=== PATIENT | male | born 1940 | race Caucasian/White ===

== ENCOUNTER → 2017-05-15 | Day surgery (SDC) | payer MEDICARE, OTHER ==
[2017-05-15] VITALS (7 sets, daily range): BP systolic 120–156; BP diastolic 60–86; PULSE 52–60; RESP 16–20; O2SAT 92–96
[~2017-05-15] VITALS: Ht 177.8 cm; Wt 116.7 kg
[~2017-05-15] MED LIST: ASPI-973 PO; ATRV10T PO; Acetaminophen IV 1,000 mg IV ONE; CALCIT PO; CHOL200025 PO; CeFAZolin Inj 2 gm / 50mL D5W IV ONE; Dexamethasone 4 mg/mL Inj IVPUSH PRN; EPHEDrine Sulfate 50 mg/mL Inj IVPUSH PRN; HYDROmorphone 1 mg/mL Inj IVPUSH PRN; IBUP100T47 PO; Lactated Ringer's 1,000 ML IV ONE; Lactated Ringer's 1,000 ML IV SCH; Lactated Ringer's 500 ML IV PRN; MetoCLOpramide 5 mg/mL 2 mL Inj IVPUSH PRN; Ondansetron 2 mg/mL 2 mL Inj IVPUSH PRN; Phenylephrine 10,000 mCg/mL Inj IVPUSH PRN; Phenylephrine/NS 100 mCg/mL 10 mL Syringe IVPUSH ONE; Propofol 10,000 mCg/mL 20 mL Inj ONE; RANI75TA21 PO; fentaNYL-PF 50 mCg/mL 2 mL Inj IVPUSH PRN; fentaNYL-PF 50 mCg/mL 2 mL Inj ONE
[2017-05-15] MEDS: CeFAZolin 2 Gm/50 mL D5W IV Premix IV ONE ×2 (11:26→11:35)
--- NOTE | 2017-05-15 12:41 | PCM.HPANE ---
Patient Data Date of Service: May 15, 2017 Surgeon Admitting Provider: Attending Provider:Lidia Knight MD Primary Care Physician:Audi Graves MD Other Provider:Bibiana Waller Anesthesia Reason for Visit Bladder Neck Contracture Ht/WT & BMI Height (Feet): 5 Height (Inches): 10 Weight (Kilograms): 116.7 Body Mass Index 36.00 Allergies Coded Allergies: No Known Allergies (Verified Allergy, Severe, 05/10/17) Past Anesthesia History Anesthesia History: Denies:: Abnormal Airway, Anesthesia Reactions, Difficult Intubation, Fam Anesthesia Reaction, Fam Malignant Hypertherm, Malignant Hyperthermia Diabetes History Hx Diabetes?: No MRSA MRSA: No Medications Blood Thinner: Aspirin Hypertension Medication: No Home Meds Incl Beta Deondre: No Reported Medications Ranitidine (Zantac OTC)75 Mg Geqldy32 Mg PO DAILY PRN reflux #1 PKG Ref 0 05/10/17 Cholecalciferol (Vitamin D3) (Vitamin D3)2,000 Unit Tablet2,000 Unit PO DAILY 05/10/17 Calcium Citrate 250 Mg [id number] Mg PO DAILY 05/10/17 Atorvastatin (Lipitor)10 Mg Tab5 Mg PO DAILY Ref 0 05/10/17 Ibuprofen (Advil)100 Mg Gnemtz355 Mg PO PRN For Pain 05/10/17 Aspirin 81 Mg Lavkep89 Mg PO DAILY Ref 0 05/10/17 Discontinued Reported Medications Atorvastatin (Lipitor)10 Mg Tab10 Mg PO DAILY Ref 0 03/16/16 Ranitidine (Zantac OTC)75 Mg Dewrgk59 Mg PO DAILY #1 PKG Ref 0 03/15/16 Aspirin-Expunged Drug, Do Not Renew! (Lo-Dose Aspirin-Expunged Drug, Do Not Renew!)81 Mg Tablet.dr81 Mg PO DAILY INSTRUCTED TO STOP 04/23/12 History History of ENT Problems?: Yes HEENT History: Positive for:: Hearing Problem Denies:: Abnormal Airway Cataracts Difficult Intubation Dysphagia Glaucoma Sinus Problem TMJ Denture Type: None Partial- Lower Teeth Condition: Within Normal Limits Hx of Heart Problems?: No Cardiovascular History: Denies:: AICD Atrial Fibrillation Chest Pain Edema Hypertension Irregular Heartbeat Pacemaker Valvular Heart Disease Hx of Respiratory Problem?: No Respiratory History: Denies:: Asthma COPD Cough Hemoptysis Oxygen Administration Pneumonia Tuberculosis Use of C-PAP Machine Hx Neurologic Problems?: No Neurological History: Denies:: CVA Dementia Dizziness Multiple Sclerosis Parkinson's Disease Seizures Hx of GI Problems?: No Hx of Problems?: Yes Genitourinary History: Denies:: Kidney Stones Urinary Tract Infection Other Pertinent History: bladder neck contracture current admission problem Male Hx: Positive for:: Prostate Problems (Turp) Denies:: Scrotal Mass Testicular Surgery Skin History: Denies:: History Skin Disorders? 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 Denies:: Blood Transfusions Hx Diabetes: No Hx Alcohol Use: YesAlcoholic Drinks Per Day: one drink weeklyHx Substance Use : No Smoking Status: Former Smoker Have You Smoked inLast 12 mo: No Stop/Bang Treated for Sleep Apnea?: No Do You Have a CPAP Machine?: No S-Snoring: Do You Snore Loudly: No T-Tired: feel tired, fatigued: Yes P-Blood Pressure: treated: No B- Body Mass Index > 35 kg/m2: No A- Age over 50: Yes N- Neck Large Circumference: No G- Gender Male: Yes CARMITA Risk Assessment: Low Risk, <3 Yes Risk Assessment Category Category 1A: Patient has history of documented sleep apnea, and HAS NOT received any narcotic, sedative or anesthesia administration during this stay. Category 1B: Patient has history of documented sleep apnea, and HAS received any narcotic , sedative or anesthesia administration during this stay Category 2: Patient has SUSPECTED Obstructive Sleep Apnea, and HAS received any narcotic , sedative or anesthesia administration during this stay. Category 3: Patient has SUSPECTED Obstructive Sleep Apnea and HAS NOT received narcotic, sedative or anesthesia administration during this stay. Category 4: Outpatient in Procedural Areas with known sleep apnea or who screen positive for High Risk via the STOP/BANG questionnaire. Exam Exam Vital Signs Vital Signs Date Time Temp Pulse Resp B/P Pulse Ox O2 Delivery O2 Flow Rate FiO2 05/15/17 12:30 54 18 120/64 94 05/15/17 12:20 54 20 122/60 92 Room Air 05/15/17 12:15 53 16 120/62 92 Room Air 05/15/17 12:06 36.5 60 19 120/74 93 Room Air 05/15/17 09:47 36.6 58 16 156/86 96 Room Air General Appearance: Alert, Oriented X3 HEENT/AIRWAY: MP 1 Lungs: Clear to Auscultation Heart: Exam Unremarkable Meds/Labs/Diagnostics Admission Meds Current Medications Cefazolin Sodium/ Dextrose 2 gm/ Premix 50 ml @ 100 mls/hr PREOP ONCE IV Last administered on 05/15/17 11:35; Start 05/15/17 at 06:00; Stop 05/15/17 at 06:29; Status DC Lactated Ringer's (Lr) 1,000 ml @ ud STK-MED ONCE IV Last administered on 05/15 10:37; Start 05/15/17 at 10:37; Stop 05/15/17 at 10:38; Status DC Plan Impression Patient chart reviewed, patient interviewed and anesthestic plan with risks, benefits, and alternatives discussed, and informed consent obtained. ASA Physical Status: ASA2 Mod Systemic Disease Anesthetic Plan: GA Bene/Risks/Altern/Consents: Yes HP Complete Prior to Induction: Yes Ej Ruano MD May 15, 2017 12:41
--- NOTE | 2017-05-15 12:42 | PCM.ANEP1 ---
Post Anesthesia PACU Phase 1 Assessment Vital Signs Vital Signs Date Time Temp Pulse Resp B/P Pulse Ox O2 Delivery O2 Flow Rate FiO2 05/15/17 12:30 54 18 120/64 94 05/15/17 12:20 54 20 122/60 92 Room Air 05/15/17 12:15 53 16 120/62 92 Room Air 05/15/17 12:06 36.5 60 19 120/74 93 Room Air 05/15/17 09:47 36.6 58 16 156/86 96 Room Air Anesthetic Administered: GA Level of Alertness: Awake, talking URENA's with Equal Strength: No Pain: No Nausea or Vomiting: No CV Function & Hydration Stable: Yes Airway Device: Oxygen Delivery: Room Air Lungs: Clear to Auscultation PACU Phase 2 Assessment Complications: No Follow up Care: N/A Patient Instructions Provided: N/A Ej Ruano MD May 15, 2017 12:42
--- NOTE | 2017-05-17 12:17 | OP ---
[address] [address] OPERATIVE REPORT PATIENT: MANJINDER MILLS : 1940 MR#: [id number] ADMIT: 05/15/2017 JOB ID: [id number] DATE OF SURGERY: 05/15/2017 SURGEON: Lidia Knight M.D. PREOPERATIVE DIAGNOSIS(ES): 1. Bladder neck contracture. 2. Urinary retention. POSTOPERATIVE DIAGNOSIS(ES): 1. Bladder neck contracture. 2. Urinary retention. OPERATION PERFORMED: Transurethral resection of bladder neck contracture. ANESTHESIOLOGIST: Ej Ruano M.D. ANESTHESIA: General. FINDINGS: Urethra normal. External sphincter intact. Prostate status post TUR and nonobstructing except a partially obstructing nodular regrowth at the right proximal fossa and associated with a 14-Bermudian bladder neck contracture. Bladder 2+ trabeculation. Normal orifices bilaterally. No stone, diverticulum or tumor seen. PROCEDURE SUMMARY: The patient was positioned in supine and was administered general anesthesia. He was then repositioned in semi-lithotomy, and the lower abdomen, genitalia and groin were prepped and draped in a sterile fashion. A 24-Bermudian resectoscope was then advanced in the lower urinary tract under direct visualization as described above. Next, the button element was prepared and resection of the bladder neck and obstructing regrowth was undertaken. Hemostasis was excellent. The bladder neck was widely opened. The bladder was left partially filled. All instrumentation was removed and an 18-B[place]udian silicone catheter was inserted and placed to gravity drainage.
== END | disposition home or self-care (01) ==
LOC: SAS 09:22
PROVIDERS: ATTEND Specialist
DX: N32.0 Bladder-neck obstruction (principal); R33.8 Other retention of urine; Z79.82 Long term (current) use of aspirin; Z79.899 Other long term (current) drug therapy; Z87.891 Personal history of nicotine dependence
CPT/HCPCS: 52500; J0690; J2370; J3010; J7120